=== PATIENT | male | born 1970 | race Caucasian/White ===

== ENCOUNTER 2020-01-01 15:45 | Emergency (ER) | payer BC, OTHER ==
[~2020-01-01] VITALS: Ht 182.9 cm; Wt 123.5 kg
[2020-01-01 16:15] LABS: BASO # 0.1 10^3/uL (0.0-0.2); BASO % 0.8 % (0.0-1.0); EOS # 0.3 10^3/uL (0.0-0.5); EOS % 4.6 % (0.0-3.0); HEMATOCRIT 46.3 % (42.0-52.0); HEMOGLOBIN 15.4 g/dl (13.5-17.5); LYMPH # 2.3 10^3/uL (1.5-5.0); MEAN CORPUSCULAR HEMOGLOBIN 30.7 pg (27.0-33.0); MEAN CORPUSCULAR HGB CONC 33.3 g/dl (32.0-36.5); MEAN CORPUSCULAR VOLUME 92.4 fl (80.0-96.0); MONO # 0.6 10^3/uL (0.0-0.8); MONO % 7.9 % (0.0-5.0); NEUTROPHILS # 4.1 10^3/uL (1.5-8.5); NEUTROPHILS % 55.4 % (36.0-66.0); PLATELET COUNT, AUTOMATED 203 10^3/uL (150-450); RED BLOOD COUNT 5.01 10^6/uL (4.30-6.10); WHITE BLOOD COUNT 7.5 10^3/uL (4.0-10.0)
--- NOTE | 2020-01-01 16:26 | REP ---
Portable chest, 04:11 p.m., single AP view with the the patient sitting: There are no comparisons. The lung lucio are clear. The cardiac size is normal. The mert, mediastinum, and skeletal structures are unremarkable. Impression: Negative portable chest. The left costophrenic angle is excluded at the film margin. Electronically Signed by Maykel Swann MD 01/01/2020 04:17 P
[2020-01-01 16:29] LABS: INR 0.99; PROTHROMBIN TIME 12.8 SECONDS (11.8-14.0)
[2020-01-01 16:30] LABS: PARTIAL THROMBOPLASTIN TIME 31.4 SECONDS (25.0-38.4)
[2020-01-01] MEDS ORDERED: ACETAMINOPHEN 500 MG TAB PO ONE (16:30)
[2020-01-01 16:33] LABS: D-DIMER QUANT 348.17 ng/ml (<500)
[2020-01-01 16:49] LABS: ALBUMIN 3.6 GM/DL (3.2-5.2); ALT/SGPT 35 U/L (12-78); BILIRUBIN,DIRECT < 0.1 MG/DL (0.0-0.2); BILIRUBIN,TOTAL 0.4 MG/DL (0.2-1.0); BLOOD UREA NITROGEN 18 MG/DL (7-18); CALCIUM LEVEL 8.2 MG/DL (8.5-10.1); CARBON DIOXIDE LEVEL 27 MEQ/L (21-32); CHLORIDE LEVEL 107 MEQ/L (98-107); CK-MB VALUE MASS < 1.0 NG/ML (<3.6); CPK CREATINE PHOSPHOKINASE 158 U/L (39-308); CREATININE FOR GFR 1.37 MG/DL (0.70-1.30); FREE T4 1.37 NG/DL (0.76-1.46); GLUCOSE, FASTING 108 MG/DL (70-100); LIPASE 156 U/L (73-393); MB/CK RELATIVE INDEX 0.63 (< OR =4); NT-PRO BNP 27 PG/ML (<125); POTASSIUM SERUM 4.1 MEQ/L (3.5-5.1); SODIUM LEVEL 140 MEQ/L (136-145); TOTAL PROTEIN 7.3 GM/DL (6.4-8.2); TROPONIN I < 0.02 NG/ML (< 0.10)
[2020-01-01 17:47] VITALS: BP 135/87
--- NOTE | 2020-01-02 12:19 | ECGEPIP ---
[facility] - ED Test Date: 2020-01-01 Pat Name: MARINA SILVER Department: Room: - Gender: Male Scale Installer: JOSHFRANKLYN : 1970 Requested By: Susanne Schwarz Order Number: [id number] Reading MD: Juan Carlos Dietz Measurements Intervals [place] Rate: 81 P: 39 MA: 166 QRS: -18 QRSD: 116 T: 0 QT: 371 QTc: 432 Interpretive Statements SINUS RHYTHM MODERATE INTRAVENTRICULAR CONDUCTION DELAY NO PRIORS FOR COMPARISON Electronically Signed on 01-02-2020 12:19:09 EST by Juan Carlos Dietz
== END 2020-01-01 18:34 | disposition home or self-care (01) ==
LOC: M ED 15:45
DX: R07.89 Other chest pain (principal); R94.4 Abnormal results of kidney function studies; I45.89 Other specified conduction disorders; R06.02 Shortness of breath; Z87.891 Personal history of nicotine dependence

== ENCOUNTER → 2020-02-02 | Outpatient (CLI) | payer BC ==
--- NOTE | 2020-02-02 19:13 | REP ---
CHEST, TWO VIEWS: Two views of the chest are performed. There is no acute infiltrate. Heart is normal in size and the mediastinal silhouette is unremarkable. The visualized osseous structures appear intact. A metallic BB is seen in the right anterior chest wall soft tissues. IMPRESSION: No evidence of acute pulmonary disease. Electronically Signed by Maykel Maya MD 02/03/2020 05:11 P
== END ==
LOC: M WUC 17:01
PROVIDERS: ATTEND Physician Assistant
DX: R05 Cough (principal)

== ENCOUNTER → 2025-04-12 | Outpatient (REF) | LOC: M PLAIMG 08:47 | PROVIDERS: ATTEND Internal Medicine | DX: M79.641 Pain in right hand (principal) ==